=== PATIENT | male | born 1980 | race Caucasian/White ===

== ENCOUNTER 2019-03-26 13:33 | Emergency (ER) | payer MEDICAID ==
[~2019-03-26] VITALS: Ht 172.7 cm; Wt 77.1 kg
[2019-03-26 13:33] VITALS: BP_SYST 127
--- NOTE | 2019-03-26 13:33 | NUR ---
BROUGHT BACK TO BED #7 AND TRIAGED. REPORT GIVEN TO LOGAN
--- NOTE | 2019-03-26 13:50 | NUR ---
ER at bedside examining patient.
--- NOTE | 2019-03-26 13:55 | NUR ---
Received patient seated in the chair. alert,awake, orientedx4, denies sob. stated right side back pain radiate to lower chest, stated internal pain not burning or pinching. soreness. able to bend, flex, twitch. vital sign stable, afebrile. no other concerned noted.
--- NOTE | 2019-03-26 14:20 | NUR ---
DR SHER AT BEDSIDE SPEAKING WITH PT
[2019-03-26 14:40] VITALS: BP_SYST 127
--- NOTE | 2019-03-26 14:41 | NUR ---
Patient given written and verbal discharge instructions and verbalizes understanding. ER MD discussed with patient the results and treatment provided. Patient in stable condition. ID arm band removed. Patient educated on pain management and to follow up with PMD. Pain Scale 0. Opportunity for questions provided and answered. Medication side effect fact sheet provided.
== END 2019-03-26 14:41 | disposition home or self-care (01) ==
LOC: SED 13:33
DX: M54.6 Pain in thoracic spine (principal); J45.909 Unspecified asthma, uncomplicated; Z88.6 Allergy status to analgesic agent
CPT/HCPCS: 71045; 99283

== ENCOUNTER 2019-03-29 13:00 | Emergency (ER) | payer MEDICAID ==
[~2019-03-29] VITALS: Ht 172.7 cm; Wt 77.1 kg
[2019-03-29 13:44] VITALS: BP_SYST 121
--- NOTE | 2019-03-29 14:17 | NUR ---
Pt to chair 2 for exam.
--- NOTE | 2019-03-29 14:18 | NUR ---
HELENA ROSSI at bedside examining patient.
--- NOTE | 2019-03-29 15:00 | NUR ---
Patient transported to radiology via AMBULATED, accompanied by RAD STAFF.
[2019-03-29 16:06] LABS: BASOPHILS % (AUTO) 0.7 % (0.0-2.0); EOSINOPHILS % (AUTO) 0.6 % (0.0-4.0); HEMATOCRIT 47.2 % (36-54); HEMOGLOBIN 16.3 g/dL (14.0-18.0); LYMPHOCYTES # (AUTO) 1.6 K/uL (1.0-5.5); LYMPHOCYTES % (AUTO) 25.4 % (20.5-51.5); MEAN CORPUSCULAR HEMOGLOBIN 31 pg (27-31); MEAN CORPUSCULAR HGB CONC 35 % (32-36); MEAN CORPUSCULAR VOLUME 91 fL (79.0-98.0); MONOCYTES # (AUTO) 0.4 K/uL (0.0-1.0); MONOCYTES % (AUTO) 7.1 % (1.7-9.3); NEUTROPHILS # (AUTO) 4.2 K/uL (1.8-7.7); NEUTROPHILS % (AUTO) 66.2 % (40.0-70.0); PLATELET COUNT (AUTO) 176 K/uL (130-430); RED CELL DISTRIBUTION WIDTH 13.3 % (9.0-15.0); WHITE BLOOD COUNT (AUTO) 6.3 K/uL (4.8-10.8)
[2019-03-29 16:18] LABS: CALCIUM 9.5 mg/dL (8.4-11.0); CREATININE 1.04 mg/dL (0.55-1.30); POTASSIUM 4.6 mmol/L (3.5-5.1)
[2019-03-29 16:23] LABS: ALBUMIN 4.6 g/dL (3.4-4.8); TOTAL BILIRUBIN 0.8 mg/dL (0.0-1.0)
[2019-03-29 16:32] LABS: BILIRUBIN,URINE NEGATIVE (NEGATIVE); BLOOD, URINE NEGATIVE (NEGATIVE); CLARITY/URINE CLEAR (CLEAR); COLOR,URINE YELLOW (YELLOW); GLUCOSE,URINE NEGATIVE (NEGATIVE); KETONES,URINE NEGATIVE (NEGATIVE); LEUKOCYTE ESTERASE ,URINE NEGATIVE (NEGATIVE); NITRITE, URINE NEGATIVE (NEGATIVE); PH,URINE 6.5 (5.0-8.0); PROTEIN URINE NEGATIVE (NEGATIVE); UROBILINOGEN,URINE 0.2 (0.2-1.0)
[2019-03-29] MEDS ORDERED: ACETAMINOPHEN 500 MG TABLET PO ONE (17:00)
--- NOTE | 2019-03-29 17:00 | NUR ---
PT MEDICATED, PT TOLERATED WELL
[2019-03-29 18:11] VITALS: BP_SYST 124
--- NOTE | 2019-03-29 18:11 | NUR ---
Patient given written and verbal discharge instructions and verbalizes understanding. ER MD discussed with patient the results and treatment provided. Patient in stable condition. ID arm band removed. Rx of MIRALAX given. Patient educated on pain management and to follow up with PMD. Pain Scale 0 Opportunity for questions provided and answered. Medication side effect fact sheet provided.
== END 2019-03-29 18:11 | disposition home or self-care (01) ==
LOC: SED 13:00
DX: K59.00 Constipation, unspecified (principal); R03.0 Elevated blood-pressure reading, without diagnosis of hypertension; J45.909 Unspecified asthma, uncomplicated; Z88.6 Allergy status to analgesic agent
CPT/HCPCS: 36415; 76700-TC; 80053; 81003; 83690-TC; 85025; 99284

== ENCOUNTER 2019-04-09 11:12 | Emergency (ER) | payer MEDICAID | END 2019-04-10 17:05 | disposition home or self-care (01) | LOC: SED 04-10 11:12 | DX: S29.012A Strain of muscle and tendon of back wall of thorax, initial encounter (principal); X50.9XXA Other and unspecified overexertion or strenuous movements or postures, initial encounter; Y93.89 Activity, other specified; Y92.89 Other specified places as the place of occurrence of the external cause; Y99.8 Other external cause status | CPT/HCPCS: 72128; 99284 ==